=== PATIENT | female | born 1975 | race Caucasian/White ===

== ENCOUNTER 2017-11-24 23:36 | Emergency (ER) | payer OTHER, SELFPAY ==
[2017-11-24 23:36] VITALS: BP 153/82; PULSE 99; RESP 14; TEMP 37.1; O2SAT 99; BMI 30.8
--- NOTE | 2017-11-24 23:47 | RAD_ITS ---
STUDY: X-RAY - LEFT ANKLE REASON FOR EXAM: Female, 42 years old. Injured playing volleyball. Pain throughout the entire ankle. TECHNIQUE: 3 view(s) of the ankle. COMPARISON: None. FINDINGS: Normal visualized distal tibia and fibula. Normal medial and lateral malleoli. Normal tibiotalar articulation and ankle mortise. Normal visualized talus and calcaneus. The visualized subtalar, talonavicular, calcaneocuboid and tarsal articulations are normal. There is nonspecific soft tissue swelling. RAD/Ankle min 3 Views IMPRESSION: No demonstrated fracture, dislocation, or destructive osseous lesion. Electronically Signed: Pablito Humphries MD at 0:30 EDT , Service support ,
--- NOTE | 2017-11-24 23:51 | ED.DCSUM_ITS ---
- ER Visit Summary Date of Service: 11/24/17 Chief Complaint: Ankle injury History of Present Illness: The patient is a 42 F presents to the emergency department with injury to her left ankle. 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 She states that she jumped and twisted the ankle. She states since then , she had a difficult time bearing weight. She has had a lot of swelling on the lateral aspect of the ankle. She denies any further fracture. She denies any daily medications or medical history. She did not strike her head. Physical Examination: Exam is relatively unremarkable. The patient does have swelling of the lateral malleolus. Hayes test is negative. No pain at the proximal fibula. No pain at the head of the fifth metatarsal. Normal pulses. Skin is intact. Test Results: [] Emergency Department Course and Treatment: The patient underwent plain films. There is no evidence of acute fracture. I do she likely has a ligamentous strain. The patient was placed in an Aircast and given crutches. She will be given for analgesics for home. She will be started on anti-inflammatories. She will continue ice and elevation. She will follow-up with orthopedics for reevaluation as needed. Treatment Plan: [] Disposition: Discharge Impression: 1. Left lateral ankle sprain This note was generated with [employer] dictation software. It may contain incorrect words, spelling, and punctuation that were not noted in review of the chart prior to signing ED Disposition - Plan for ED Patient: Chief Complaint: Lower Extremity Injury Instructions: ED Sprain Ankle W X Ray Prescriptions: Naproxen [Naprosyn] 500 mg PO BID PRN #20 tab Referrals: Melanie Oneil DO [STAFF PHYSICIAN] -
[2017-11-24] MEDS: HYDROcodone Bitartrate/Apap 5/325 Tablet PO (23:54)
[2017-11-25] MEDS: HYDROcodone Bitartrate/Apap 5/325 Tablet PO (00:27)
== END 2017-11-25 00:31 | disposition home or self-care (01) ==
LOC: ED 11-25 00:06
PROVIDERS: Emergency Provider Emergency Medicine; Family Provider Internal Medicine; PCP Internal Medicine
DX: S93.492A Sprain of other ligament of left ankle, initial encounter (principal); X50.1XXA Overexertion from prolonged static or awkward postures, initial encounter; Y93.39 Activity, other involving climbing, rappelling and jumping off; Y92.310 Basketball court as the place of occurrence of the external cause; Y99.8 Other external cause status
CPT/HCPCS: 73610; 99284

== ENCOUNTER → 2018-06-16 12:38 | Outpatient (CLI) | payer OTHER, SELFPAY ==
--- NOTE | 2018-06-16 12:42 | BI_ITS ---
MAMMOGRAPHY - BILATERAL SCREENING REASON FOR EXAM: Female, 43 years old. Routine annual screening examination. PERTINENT HISTORY: Aunt with breast cancer. TECHNIQUE: Digital bilateral breast anuel (3D mammographic acquisition) in the CC and MLO projections. 2-D mediolateral oblique (MLO) and craniocaudad (CC) views of both breasts were obtained. CAD: Full Field Digital Mammography with Computer Added Detection was performed. COMPARISON: Comparison is made with prior outside examination dated May 23, 2013. FINDINGS: Breast Composition: The breasts are heterogeneously dense, which may obscure small masses. There are no dominant masses or suspicious calcifications. No other significant abnormalities are identified. There has been no significant change since the prior study. BI/SCREENING MAMM (CAD), BILAT IMPRESSION: Stable bilateral screening mammogram. Yearly follow-up mammogram recommended. (A) ASSESSMENT CATEGORY: BIRADS Category 1: Negative. A letter regarding these results will be sent to the patient by the facility within 30 days. Approximately 10% of breast cancers are not detected by mammography. A normal mammogram should not delay biopsy of a clinically suspicious abnormality. [id number] Electronically Signed: Lewis Camarena MD at 15:01 EST Tel [phone], Service support ,
== END ==
PROVIDERS: Family Provider Internal Medicine; PCP Internal Medicine; Referring Provider Nurse Practitioner Women's Health; Visit Provider Nurse Practitioner Women's Health
DX: Z12.31 Encounter for screening mammogram for malignant neoplasm of breast (principal)
CPT/HCPCS: 77063; 77067

== ENCOUNTER → 2018-07-07 08:04 | Outpatient (CLI) | payer OTHER, SELFPAY ==
--- NOTE | 2018-07-07 08:05 | US_ITS ---
STUDY: ULTRASOUND OF THE FEMALE PELVIS - COMPLETE REASON FOR EXAM: Female, 43 years old. IUD evaluation TECHNIQUE: Transabdominal and Transvaginal TECHNICAL QUALITY: Adequate. COMPARISON: None. FINDINGS: The uterus is anteverted and is in a midline position. The uterus measures 11.6 x 5.6 x 4.4 cm. Normal uterine cervix. The endometrium measures 4 mm in thickness, and is fluid distended. There is no demonstrated endometrial mass. There is no demonstrated myometrial mass. Intrauterine device is positioned within the endometrial cavity, demonstrating a rotated orientation with the body of the IUD lying transversely across the fundic region of the endometrial cavity. The right ovary is visualized. The right ovary measures 3.8 x 3.9 x 2.1 cm. There is no right ovarian cyst or ovarian mass. There is no visualized right adnexal mass or complex lesion. There is normal arterial and normal venous vascularity. The left ovary is surgically absent. There is no fluid in the cul-de-sac. The pre void volume of the bladder was 225 ml. Polycystic ovary disease: No. US/Pelvic (Non ) IMPRESSION: 1. Transverse lie of the patient's intrauterine device within the fundic region of the endometrial cavity. 2. Small amount of endometrial canal fluid, likely correlating with menstrual history. Electronically Signed: Faustino Jarvis MD at 2:52 EST Tel , Service support ,
--- NOTE | 2018-07-07 08:05 | US_ITS ---
STUDY: ULTRASOUND OF THE FEMALE PELVIS - COMPLETE REASON FOR EXAM: Female, 43 years old. IUD evaluation TECHNIQUE: Transabdominal and Transvaginal TECHNICAL QUALITY: Adequate. COMPARISON: None. FINDINGS: The uterus is anteverted and is in a midline position. The uterus measures 11.6 x 5.6 x 4.4 cm. Normal uterine cervix. The endometrium measures 4 mm in thickness, and is fluid distended. There is no demonstrated endometrial mass. There is no demonstrated myometrial mass. Intrauterine device is positioned within the endometrial cavity, demonstrating a rotated orientation with the body of the IUD lying transversely across the fundic region of the endometrial cavity. The right ovary is visualized. The right ovary measures 3.8 x 3.9 x 2.1 cm. There is no right ovarian cyst or ovarian mass. There is no visualized right adnexal mass or complex lesion. There is normal arterial and normal venous vascularity. The left ovary is surgically absent. There is no fluid in the cul-de-sac. The pre void volume of the bladder was 225 ml. Polycystic ovary disease: No. US/Transvaginal Non- IMPRESSION: 1. Transverse lie of the patient's intrauterine device within the fundic region of the endometrial cavity. 2. Small amount of endometrial canal fluid, likely correlating with menstrual history. Electronically Signed: Faustino Jarvis MD at 2:52 EST Tel , Service support ,
--- OUTSIDE RECORDS SUMMARY | 2018-09-01 13:09 | XMS RPT_ITS ---
:1975 Author Organization OHIP Care Team Providers Name Role Phone CANDY MC Attending Unavailable Fast, Rasheeda Primary Care Unavailable Lalito Mccrary Attending Unavailable Luana Laughlin Attending Unavailable Vincenzo, Rasheeda Referring Unavailable Luana Laughlin Attending Unavailable Luana Laughlin Referring Unavailable Fast, Rasheeda Primary Care Unavailable Harini Ramirez Attending Unavailable Harini Ramirez Referring Unavailable Talampas, Candy Primary Care Unavailable Harini Ramirez Attending Unavailable Harini Ramirez Referring Unavailable Fast, Rasheeda Primary Care Unavailable Harini Ramirez Attending Unavailable Rasheeda Loya Referring Unavailable PROBLEMS PROBLEMS DATE TYPE CONDITION / CODE ATTENDING STATUS SOURCE 07/07/2018 Unknown Z30.430 - Encounter James Active [place] for insertion of [facility] contraceptive Repository device / Z30.430(ICD-10) 06/16/2018 Unknown Z12.31 - Encounter Luana Laughlin Active [place] for screening [facility] mammogram [facility] malignant neoplasm Repository of breast / Z12.31(ICD-10) PROCEDURES PROCEDURES No Procedure Records FoundRESULTS RESULTS OPERATIVE REPORT Observed: 07/15/2018 Status: F Source: [place] 8:25 PM [facility] REPOSITORY [facility] Medical Records Department [address] [place] [address] Operative Report 07/15/18 1540 MR#: [id number] Acct: [id number] Name: DYLLAN RYAN Brad Rep #: [id number] : 1975 43 From: Harini Ramirez MD PCP: Rasheeda Loya DO Status: [facility] [place] [facility] [place] List (1) Abnormal uterine bleeding Status: Chronic Comment: plan d and c iud removal and nara ablation (2) Malpositioned IUD Status: Chronic Qualifiers: Comment: plan surgical removal Report of Operation Date of Procedure: 07/15/18 Pre-Operative Diagnosis: aub iud malposition Post-Operative Diagnosis: same Surgery/Procedure Performed:: d and c hysteroscopy iud removal and nara ablation Description of Surgical Findings:: normal uterine lining Type of Anesthesia:: Local MAC Specimen's removed: emc Estimated Blood Loss (mL): minimal Description of Procedure: Patient was prepped and draped in a normal sterile fashion under MAC anesthesia. A weighted speculum was placed in the vagina and the anterior lip of the cervix was grasped with a single-tooth tenaculum. A paracervical block was placed with 1% lidocaine. Using a tonsil clamp the IUD strings were grasped and the IUD was removed without complication. cervix was progressively dilated to allow passage of a 5 mm hysteroscope. The lining was fully visualized and noted to have no abnormalities. Uterine sounded to 11 cm. Curettage was performed and a moderate amount of tissue was removed, sent to pathology. The Nara device was opened and the cavity length was found to be 6 cm. Device was inserted into the uterus and balloon inflated and device deployed. Integrity of the cavity was confirmed and a 2 minute treatment cycle was completed without complication. All instruments were removed from the vagina and excellent hemostasis was noted. Patient was awoken and taken to recovery in stable condition. Grafts/Implants Used: none - Complications none 07/15/182024 <Electronically signed by Harini Ramirez MD> Date Harini Ramirez MD CC: Rasheeda Loya DO; Harini Ramirez MD Signed DISCHARGE INSTRUCTION Observed: 07/15/2018 Status: F Source: [place] 3:40 PM [facility] REPOSITORY [facility] Medical Records Department [address] [place] [address] Instructions for Home/Discharge Instructions 07/15/18 1540 MR#: [id number] Acct: [id number] Name: DYLLAN RYAN Rep #: [id number] : 1975 43 From: Harini Ramirez MD PCP: Rasheeda Loya DO [place] [facility] [place] Diet: No Restrictions Discharge Activity: Return to Normal Activity, May Shower, May Take a Tub Bath Allergies/Adverse Reactions: Allergies morphine Adverse Reaction (Verified 07/12/18 10:51) Nausea/Vom/Diarrhea Medications to take at Discharge NK 07/12/18 Orders to be completed after discharge: Type AND Screen Time Frame: 07/15/18, Location: None Selected Primary Care Physician: Rasheeda Loya DO [Primary Care Provider] - Test Results: Test results from this visit will be discussed in further detail at your follow-up appointment, if applicable. Please Follow Up With: Harini Ramirez MD - [phone] 07/15/18 1540 <Electronically signed by Harini Ramirez MD> Date Harini Ramirez MD CC: Rasheeda Loya DO HISTORY AND PHYSICAL Observed: 07/15/2018 Status: F Source: [place] EXAM 3:34 PM [facility] REPOSITORY [facility] Medical Records Department [address] [place] [address] History and Physical 07/15/18 0613 MR#: [id number] Acct: [id number] Name: DYLLAN RYAN Rep #: [id number] : 1975 43 From: Harini Ramirez MD PCP: Rasheeda Loya DO Status: REG [facility] Y Location: [address] - Problem List (1) Abnormal uterine bleeding Status: Chronic Comment: plan d and c iud removal and nara ablation (2) Malpositioned IUD Status: Chronic Qualifiers: Comment: plan surgical removal History and Physical Date of Admission: 07/15/18 Intake Visit Reasons: EMB Chief Complaint: EMB Salt Washer Required: No Is patient in pain?: No Allergies No Known Allergies Allergy (Verified 07/08/18 11:33) Medications Naproxen [Naprosyn] 500 mg PO BID PRN #20 tab 11/25/17 [Rx Confirmed 07/08/18] levonorgestrel 20 mcg/24 hr (5 years) intrauterine device 1 insert INTRAUTERINE ONCE 05/17/18 [History Confirmed 07/08/18] Is last menstrual period known: No Post menopausal: No Patient : No : No PFSH PFSH Medical History Anemia (Acute) Enlarged uterus (Acute) Viral meningitis (Acute) Surgical History H/O section (Acute) H/O tubal ligation (Acute) S/P removal of left ovary (Acute) Family History Father Hypertension Mother Hypertension Social History adopted: No household members: family housing: house number of children: 3 current occupational status: employed current occupation: [employer] current occupational exposures/hazards: No pets and animals: No history of recent travel: No Smoking Status: Never smoker alcohol intake: never substance use type: does not use what type of 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 she had a normal biopsy 2 years ago. declines UPT Female Reproductive History Cycle Length: 21-35 ROS Const Constitutional: Reports system reviewed and no additional complaints, except as docu; denies chills, fever(s), weight loss or weight gain GI GI: Reports as per HPI; denies vomiting, nausea, constipation, cramping, bloating or abdominal pain : Reports as per HPI; denies vaginal dryness, vaginal discharge, urinary urgency, urinary frequency or urinary incontinence Exam Const General: cooperative, healthy appearing, comfortable, well developed Orientation: alert HENCT Head: normal to inspection Resp Effort AND Inspection: normal respiratory effort Office Procedures Endometrial Biopsy Endometrial Biopsy Details: Cervix prepped with betadine and pipelle inserted into uterus without complication. Specimen obtained and sent to lab for analysis. All instruments removed from vagina without complications. Excellent hemostasis noted. Assessment AND Plan Problems 1. Abnormal uterine bleeding N93.9 plan d and c iud removal and nara ablation 2. Malpositioned intrauterine device (IUD), subsequent encounter T83.32XD plan surgical removal Plan discussed options of ablation versus hysterecotmy. patient prefers iud removal and ablation. discussed risks of not being able to do ablation or not being able to remove IUD. discussed surgical risks including risks of anesthesia, infection, bleeding, injury to bowel, bladder or blood vessels, and patient wishes to proceed with surgery. discussed risk of needing to perform laparoscopy UPDATE- I have seen the patient and performed any clinically relevant updates to the history and physical exam. Harini Ramirez MD 07/15/18 4648 <Electronically signed by Harini Ramirez MD> Date Harini aRmirez MD [facility] Signature: Date (if applicable) CC: Rasheeda Loya DO; Harini Ramirez MD Signed ENDOMETRIAL BX/CURETTINGS Observed: 07/15/2018 Status: F Source: [place] 3:10 PM [facility] REPOSITORY Patient: DYLLAN RYAN : 1975 (43/F) Acct Num: [id number] Phys: James KNOX,Harini Unit Num: [id number] [place] [facility] [place] Specimen: [id number] Received: 07/16/18 - 1031 Spec Type: ENDOM BX/C TISSUES 1 TISSUES: Endometrium, NOS GROSS DESCRIPTION Received in fixative is one container labeled with the patient's name and designated endometrial curettings. The specimen consists of multiple irregular fragments of dark brown soft tissue that in aggregate measure 3 x 2.5 x 0.1 cm. The specimen is totally submitted in one cassette. / RY:irina 07/16/18 TC:3 CPT: 60560 HEADER OPERATION: Hysteroscopy, D AND C, Nara, IUD removal PRE-OP DIAGNOSIS: Abnormal uterine bleeding, malpositioned IUD TISSUE SUBMITTED: Endometrial curettings MICROSCOPIC DESCRIPTION Slides are reviewed. MICROSCOPIC DIAGNOSIS Endometrial curettings: Fragments of weakly proliferative to inactive endometrium. Chronic endometritis. Fragments of benign ecto- and endocervical epithelium. SJ:irina 07/19/18 Signed Anant Blas 07/19/18 <signature on file> Performed By: #### PEMB #### [facility] [place], [address] CBC-COMPLETE BLOOD CNT Collected: 07/15/2018 Status: F Source: [place] NO DIFF 2:00 PM [facility] REPOSITORY Order Comment: Reason for Laboratory Test preop TYPE CODE TESTS RESULT OUT OF RANGE REFERENCE UNITS LAB L100.1000 4.4-11.0 K/mm3 Normal WBC 5.8 LAB L100.1200 4.2-5.4 M/mm3 Normal RBC 4.65 LAB L100.1300 12.0-15.0 g/dl Normal HGB 12.2 LAB L100.1400 37-47 % Normal HCT 38.0 LAB L100.1500 81-99 fL Normal MCV 81.7 LAB L100.1600 27.0-32.0 pg Low MCH 26.2 LAB L100.1700 32-36 g/gl Normal MCHC 32.1 LAB L100.1810 11.6-14.6 % Normal RDW CV 14.6 LAB L100.1820 35.1-43.9 fl Normal RDW SD 42.9 LAB L100.1900 150-450 K/mm3 Normal PLT 235 LAB L100.2000 6.2-12.0 fl Normal MPV 9.8 Performed By: #### L100.0500 #### [facility] [address] [place], [place], [address] TYPE AND SCREEN Collected: 07/15/2018 Status: F Source: [place] 2:00 PM [facility] REPOSITORY Order Comment: Reason for Type AND Screen/Red Cells: SURGERY Surgery Date: 07/15/18 Time: 1409 Other - use comments: UNKNOWN Type of Surgery: OTHER TYPE CODE TESTS RESULT OUT OF RANGE REFERENCE UNITS LAB B10.0800 A Normal BLOOD TYPE GEL POSITIVE LAB B100.4000 Normal Antibody NEGATIVE Screen Performed By: #### B101.7450 #### [facility] [address] [place], [place], [address] ,URINE Collected: 07/15/2018 Status: F Source: [place] 1:50 PM [facility] REPOSITORY Order Comment: Reason for Laboratory Test preop TYPE CODE TESTS RESULT OUT OF REFERENCE UNITS RANGE LAB L400.8000 Negative Normal HCGUQUAL Negative Result Comment: Very dilute urine specimens, as indicated by a low specific gravity, may not contain claims service representative levels of hCG. If is still suspected, a first morning urine specimen should be collected 48 hours later and tested. Performed By: #### L400.7600 #### [facility] [address] [place], [address] [employer]ANK [employer]SE SUPERVISOR OFFICE VISIT Observed: 07/08/2018 Status: F Source: [place] REPORT 10:13 PM [facility] REPOSITORY [facility] [address] [place] [address] OFFICE VISIT Date of Service: 07/08/18 MR#: [id number] Acct: [id number] Name: DYLLAN RYAN Rep #: [id number] : 1975 Provider: Harini Ramirez MD Age/Sex: 43/F [place] [facility] [place]: Signed Intake Vital Signs07/08/18 Height 5 ft 10 in 07/08/18 Weight: 226 lb 07/08/18 Body Mass Index (BMI) 32.4 07/08/18 Blood Pressure 110/68 Intake Visit Reasons: EMB Chief Complaint: EMB Salt Washer Required: No Is patient in pain?: No Allergies No Known Allergies Allergy (Verified 07/08/18 11:33) Medications Naproxen [Naprosyn] 500 mg PO BID PRN #20 tab 11/25/17 [Rx Confirmed 07/08/18] levonorgestrel 20 mcg/24 hr (5 years) intrauterine device 1 insert INTRAUTERINE ONCE 05/17/18 [History Confirmed 07/08/18] Is last menstrual period known: No Post menopausal: No Patient : No : No PFSH PFSH Medical History Anemia (Acute) Enlarged uterus (Acute) Viral meningitis (Acute) Surgical History H/O section (Acute) H/O tubal ligation (Acute) S/P removal of left ovary (Acute) Family History Father Hypertension Mother Hypertension Social History adopted: No household members: family housing: house number of children: 3 current occupational status: employed current occupation: [employer] current occupational exposures/hazards: No pets and animals: No history of recent travel: No Smoking Status: Never smoker alcohol intake: never substance use type: does not use what type of physical activity 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 she had a normal biopsy 2 years ago. declines UPT Female Reproductive History Cycle Length: 21-35 ROS Const Constitutional: Reports system reviewed and no additional complaints, except as docu; denies chills, fever(s), weight loss or weight gain GI GI: Reports as per HPI; denies vomiting, nausea, constipation, cramping, bloating or abdominal pain : Reports as per HPI; denies vaginal dryness, vaginal discharge, urinary urgency, urinary frequency or urinary incontinence Exam Const General: cooperative, healthy appearing, comfortable, well developed Orientation: alert HENCT Head: normal to inspection Resp Effort AND Inspection: normal respiratory effort Office Procedures Endometrial Biopsy Endometrial Biopsy Details: Cervix prepped with betadine and pipelle inserted into uterus without complication. Specimen obtained and sent to lab for analysis. All instruments removed from vagina without complications. Excellent hemostasis noted. Assessment AND Plan Problems 1. Abnormal uterine bleeding N93.9 plan d and c iud removal and nara ablation 2. Malpositioned intrauterine device (IUD), subsequent encounter T83.32XD plan surgical removal Plan discussed options of ablation versus hysterecotmy. patient prefers iud removal and ablation. discussed risks of not being able to do ablation or not being able to remove IUD. discussed surgical risks including risks of anesthesia, infection, bleeding, injury to bowel, bladder or blood vessels, and patient wishes to proceed with surgery. discussed risk of needing to perform laparoscopy Orders Orders: Coding Level of Care Code Off vis,est,level 4 Diagnoses Abnormal uterine bleeding N93.9 Malpositioned intrauterine device (IUD), subsequent encounter T83.32XD Encounter type: subsequent encounter 07/08/18 2213 <Electronically signed by Harini Ramirez MD> Date Harini Ramirez MD Cosigner Signature: Date (if applicable) CC: PELVIC (NON ) Observed: 07/07/2018 Status: F Source: [place] 8:05 AM [facility] REPOSITORY [facility] Imaging Services [address] [place] [address] Pelvic (Non ) MR#: [id number] Acct: [id number] Name: DYLLAN RYAN Rep #: [id number] : 1975 F 43 From: Faustino Jarvis MD PCP: Candy Mc MD Status: REG CLI Study: Pelvic (Non ) Date of Exam: 07/07/18 Exam# [id number] Ordering Dr: Luana Laughlin METAL NUMERICAL CONTROL PROGRAMMERMechelle STUDY: ULTRASOUND OF THE FEMALE PELVIS - COMPLETE REASON FOR EXAM: Female, 43 years old. IUD evaluation TECHNIQUE: Transabdominal and Transvaginal TECHNICAL QUALITY: Adequate. COMPARISON: None. FINDINGS: The uterus is anteverted and is in a midline position. The uterus measures 11.6 x 5.6 x 4.4 cm. Normal uterine cervix. The endometrium measures 4 mm in thickness, and is fluid distended. There is no demonstrated endometrial mass. There is no demonstrated myometrial mass. Intrauterine device is positioned within the endometrial cavity, demonstrating a rotated orientation with the body of the IUD lying transversely across the fundic region of the endometrial cavity. The right ovary is visualized. The right ovary measures 3.8 x 3.9 x 2.1 cm. There is no right ovarian cyst or ovarian mass. There is no visualized right adnexal mass or complex lesion. There is normal arterial and normal venous vascularity. The left ovary is surgically absent. There is no fluid in the cul-de-sac. The pre void volume of the bladder was 225 ml. Polycystic ovary disease: No. US/Pelvic (Non ) IMPRESSION: 1. Transverse lie of the patient's intrauterine device within the fundic region of the endometrial cavity. 2. Small amount of endometrial canal fluid, likely correlating with menstrual history. Electronically Signed: Faustino Jarvis MD at 2:52 EST Tel , Service support , CC: ROBER Laughlin; Candy Mc MD Formula Technician: Signed TRANSVAGINAL Observed: 07/07/2018 Status: F Source: [place] NON- 8:05 AM [facility] REPOSITORY [facility] Imaging Services [address] [place] [address] Transvaginal Non- MR#: [id number] Acct: [id number] Name: DYLLAN RYAN Rep #: [id number] : 1975 F 43 From: Faustino Jarvis MD PCP: Candy Mc MD Status: REG CLI Study: Transvaginal Non- Date of Exam: 07/07/18 Exam# [id number] Ordering Dr: Harini Ramirez MD STUDY: ULTRASOUND OF THE FEMALE PELVIS - COMPLETE REASON FOR EXAM: Female, 43 years old. IUD evaluation TECHNIQUE: Transabdominal and Transvaginal TECHNICAL QUALITY: Adequate. COMPARISON: None. FINDINGS: The uterus is anteverted and is in a midline position. The uterus measures 11.6 x 5.6 x 4.4 cm. Normal uterine cervix. The endometrium measures 4 mm in thickness, and is fluid distended. There is no demonstrated endometrial mass. There is no demonstrated myometrial mass. Intrauterine device is positioned within the endometrial cavity, demonstrating a rotated orientation with the body of the IUD lying transversely across the fundic region of the endometrial cavity. The right ovary is visualized. The right ovary measures 3.8 x 3.9 x 2.1 cm. There is no right ovarian cyst or ovarian mass. There is no visualized right adnexal mass or complex lesion. There is normal arterial and normal venous vascularity. The left ovary is surgically absent. There is no fluid in the cul-de-sac. The pre void volume of the bladder was 225 ml. Polycystic ovary disease: No. US/Transvaginal Non- IMPRESSION: 1. Transverse lie of the patient's intrauterine device within the fundic region of the endometrial cavity. 2. Small amount of endometrial canal fluid, likely correlating with menstrual history. Electronically Signed: Faustino Jarvis MD at 2:52 EST Tel , Service support , CC: Candy Mc MD; Harini Ramirez MD Formula Technician: Signed PROGRESS Observed: 06/29/2018 Status: COMPLETED Source: [place] 7:59 PM [facility] REPOSITORY HNO ID: [id number] Author: aCndy Mc Service: (none) Author Type: Physician Type: Progress Notes Filed: 07/08/2018 2:21 PM Note Text: This note was created using [employer]. Subjective Dyllan Ryan is a 43 year old female. HISTORY Dyllan Ryan is a 43 year old lady here to be formally established with me. IUD was placed because of issues with heavy periods and anemia. Still having periods. Now increased frequency but not as heavy.Every 3 weeks lasting 10 days. Got worse with acne issues. Migraines recurred after being gone after having children. With menses starting. Aura then headaches. Ibuprofen effective. Will be getting uterine ablation and removal of IUD. Dr. Ramirez at [facility]. Varicose vein issues. Gets burning and itching. More RLS in leg with more varicose vein issues. GI issues started after IUD placed. Leaking feeling but no incontinence; wipes mucousy stool with sometimes blood. Notices sensation after moves bowels an hour later. Noted when having her period. No blood with BM. About 3 episodes with blood in past 6 months. PAST MEDICAL HISTORY Diagnosis Date - Anemia 05/20/2013 taking an iron supp. - Meningitis of unspecified cause 2004 VIRAL - Unspecified asthma(493.90) CHILDHOOD - Variants of migraine, not elsewhere classified, without mention of intractable migraine without mention of status migrainosus Current Outpatient Prescriptions: levonorgestrel (MIRENA) 20 mcg/24 hr (5 years) IUD Inserted in office No current facility-administered medications for this visit. ALLERGIES No Known Allergies PAST SURGICAL HISTORY Procedure Laterality Date - DELIVERY ONLY 2003, 2006, 2008 , low cervical x3 - EXCIS RECURRENT GANGLION WRIST Right - INSERTION OF IUD 09/26/2016 - REMOVAL OF OVARY(S) 2008 Left Ovary Removed - TUBAL LIGATION, 2008 FAMILY HISTORY Problem Relation Age of Onset - Hypertension Mother - Lipids Mother - Hypertension Father - Lipids Father - Thyroid Father - Coronary Artery Disease Maternal Grandmother - Heart Maternal Grandfather - Cancer Paternal Grandmother LUNG CANCER - Stroke Paternal Grandfather - Breast Cancer Other PG AUNT - Breast Cancer Other MG AUNT Social History Marital status: Spouse name: Raeann Years of education: 16 Number of children: 3 Occupational History Occupation Employer Comment [employer] Social History Main Topics Smoking status: Never Smoker Smokeless tobacco: Never Used Alcohol use: No Drug use: No Sexual activity: Yes Partners with: Male control/protection: Tubal Ligation, IUD Review of Systems Objective BP 132/82 Pulse 76 Resp 20 Ht 177.8 cm (5' 10) Wt 101.2 kg (223 lb) BMI 32.00 kg/m? Last 5 Encounter BP Readings: Date: BP: 06/29/2018 132/82 09/10/2016 118/72 05/07/2016 106/62 12/22/2015 100/62 11/20/2015 117/68 Last 5 Encounter Wt Readings: Date: Wt: 06/29/2018 101.2 kg (223 lb) 09/26/2016 99.8 kg (220 lb) 09/19/2016 97.1 kg (214 lb) 09/10/2016 97.1 kg (214 lb) 05/07/2016 92.1 kg (203 lb) Physical Exam Constitutional: She is oriented to person, place, and time. She appears well-developed and well-nourished. HENT: Head: Normocephalic and atraumatic. Right Ear: External ear normal. Left Ear: External ear normal. Nose: Nose normal. Mouth/Throat: Oropharynx is clear and moist. Eyes: Pupils are equal, round, and reactive to light. Conjunctivae and EOM are normal. Neck: Normal range of motion. Neck supple. Cardiovascular: Normal rate, regular rhythm, normal heart sounds and intact distal pulses. Pulmonary/Chest: Effort normal and breath sounds normal. Abdominal: Soft. Bowel sounds are normal. Musculoskeletal: Normal range of motion. Neurological: She is alert and oriented to person, place, and time. Skin: Skin is warm and dry. Psychiatric: She has a normal mood and affect. Her behavior is normal. Medium caliber varicose veins Assessment and Plan Encounter Diagnosis ICD-10-CM 1. Routine medical exam Z00.00 2. Fecal smearing R15.1 sometimes mucusy 3. Varicose veins of bilateral lower extremities with pain I83.813 burning or itching discomfort 4. Menstrual migraine without status migrainosus, not intractable G43.829 5. Acne vulgaris L70.0 43 year old lady here to be formally established with me. History and medications reviewed. Epic updated as needed Above issues addressed with patient. Patient involved in shared decision making for management of medical issues. Refills taken care of and meds adjusted as indicated after reviewed history, exam and labs. Health Maintenance reviewed. Updated record and/or ordered tests as recorded. Encouraged on efforts at healthy diet and regular exercise and adequate sleep. Overall healthy exam. Will see inf migraines and acne clear up after IUD removed. Further evaluation and treatment as indicated. Can refer to vein specialist if decides wants to have procedure for varicose vein issues. Can refer to GI or General Surgeon for fecal smearing issues No other red flag symptoms noted. Candy Mc MD CNOV Observed: 06/29/2018 Status: COMPLETED Source: [place] 7:00 PM [facility] REPOSITORY Office Visit (INTMWS) DYLLAN RYAN ([id number]) 1975 F Date Time Provider Department 06/29/18 7:00 PM [facility]ANDY [facility] [place] During your visit today, we recorded the following information about you: Pulse Respiration Blood pressure Weight 76/minute 20/minute 132/82 101.2 kg Height 1.778 m Candy Mc MD 07/08/2018 2:21 PM Signed This note was created using NoteWriter. Subjective Dyllan Ryan is a 43 year old female. HISTORY Dyllan Ryan is a 43 year old lady here to be formally established with me. IUD was placed because of issues with heavy periods and anemia. Still having periods. Now increased frequency but not as heavy.Every 3 weeks lasting 10 days. Got worse with acne issues. Migraines recurred after being gone after having children. With menses starting. Aura then headaches. Ibuprofen effective. Will be getting uterine ablation and removal of IUD. Dr. Ramirez at [facility]. Varicose vein issues. Gets burning and itching. More RLS in leg with more varicose vein issues. GI issues started after IUD placed. Leaking feeling but no incontinence; wipes mucousy stool with sometimes blood. Notices sensation after moves bowels an hour later. Noted when having her period. No blood with BM. About 3 episodes with blood in past 6 months. PAST MEDICAL HISTORY Diagnosis Date - Anemia 05/20/2013 taking an iron supp. - Meningitis of unspecified cause 2004 VIRAL - Unspecified asthma(493.90) CHILDHOOD - Variants of migraine, not elsewhere classified, without mention of intractable migraine without mention of status migrainosus Current Outpatient Prescriptions: levonorgestrel (MIRENA) 20 mcg/24 hr (5 years) IUD Inserted in office No current facility-administered medications for this visit. ALLERGIES No Known Allergies PAST SURGICAL HISTORY Procedure Laterality Date - DELIVERY ONLY 2004, 2006, 2009 , low cervical x3 - EXCIS RECURRENT GANGLION WRIST Right - INSERTION OF IUD 09/26/2016 - REMOVAL OF OVARY(S) 2008 Left Ovary Removed - TUBAL LIGATION, 2008 FAMILY HISTORY Problem Relation Age of Onset - Hypertension Mother - Lipids Mother - Hypertension Father - Lipids Father - Thyroid Father - Coronary Artery Disease Maternal Grandmother - Heart Maternal Grandfather - Cancer Paternal Grandmother LUNG CANCER - Stroke Paternal Grandfather - Breast Cancer Other PG AUNT - Breast Cancer Other MG AUNT Social History Marital status: Spouse name: Raeann Years of education: 16 Number of children: 3 Occupational History Occupation Employer Comment [employer]OMEM[employer] Social History Main Topics Smoking status: Never Smoker Smokeless tobacco: Never Used Alcohol use: No Drug use: No Sexual activity: Yes Partners with: Male control/protection: Tubal Ligation, IUD Review of Systems Objective BP 132/82 Pulse 76 Resp 20 Ht 177.8 cm (5' 10) Wt 101.2 kg (223 lb) BMI 32.00 kg/m? Last 5 Encounter BP Readings: Date: BP: 06/29/2018 132/82 09/10/2016 118/72 05/07/2016 106/62 12/22/2015 100/62 11/20/2015 117/68 Last 5 Encounter Wt Readings: Date: Wt: 06/29/2018 101.2 kg (223 lb) 09/26/2016 99.8 kg (220 lb) 09/19/2016 97.1 kg (214 lb) 09/10/2016 97.1 kg (214 lb) 05/07/2016 92.1 kg (203 lb) Physical Exam Constitutional: She is oriented to person, place, and time. She appears well-developed and well-nourished. HENT: Head: Normocephalic and atraumatic. Right Ear: External ear normal. Left Ear: External ear normal. Nose: Nose normal. Mouth/Throat: Oropharynx is clear and moist. Eyes: Pupils are equal, round, and reactive to light. Conjunctivae and EOM are normal. Neck: Normal range of motion. Neck supple. Cardiovascular: Normal rate, regular rhythm, normal heart sounds and intact distal pulses. Pulmonary/Chest: Effort normal and breath sounds normal. Abdominal: Soft. Bowel sounds are normal. Musculoskeletal: Normal range of motion. Neurological: She is alert and oriented to person, place, and time. Skin: Skin is warm and dry. Psychiatric: She has a normal mood and affect. Her behavior is normal. Medium caliber varicose veins Assessment and Plan Encounter Diagnosis ICD-10-CM 1. Routine medical exam Z00.00 2. Fecal smearing R15.1 sometimes mucusy 3. Varicose veins of bilateral lower extremities with pain I83.813 burning or itching discomfort 4. Menstrual migraine without status migrainosus, not intractable G43.829 5. Acne vulgaris L70.0 43 year old lady here to be formally established with me. History and medications reviewed. Epic updated as needed Above issues addressed with patient. Patient involved in shared decision making for management of medical issues. Refills taken care of and meds adjusted as indicated after reviewed history, exam and labs. Health Maintenance reviewed. Updated record and/or ordered tests as recorded. Encouraged on efforts at healthy diet and regular exercise and adequate sleep. Overall healthy exam. Will see inf migraines and acne clear up after IUD removed. Further evaluation and treatment as indicated. Can refer to vein specialist if decides wants to have procedure for varicose vein issues. Can refer to GI or General Surgeon for fecal smearing issues No other red flag symptoms noted. Candy Mc MD Referring Provider: SELF [200] Allergies As of Date: 06/29/2018 (No Known Allergies) Date Reviewed: 11/03/2016 Reviewed by: Nicki Sarkar Ma - Fully Assessed Reason for Visit: Establish Care [42] Reason For Visit History Recorded Primary Visit Diagnosis:Routine medical exam [Z00.00] Other Visit Diagnoses:Fecal smearing [R15.1] Comment:sometimes mucusy Varicose veins of bilateral lower extremities with pain [I83.813] Comment:burning or itching discomfort Menstrual migraine without status migrainosus, not intractable [G43.829] Acne vulgaris [L70.0] Order(s):ibuprofen (MOTRIN) 200 mg tabletTake 2-3 tablets by mouth twice daily as needed for Pain (Take with food.). For migraineDisp: Rfl: Prescriptions as of 06/29/2018 Sig: LEVONORGESTREL 20 MCG/24 HR (* Inserted in office IBUPROFEN 200 MG TABLET Take 2-3 tablets by mouth twi* Problem List As Of Date 06/29/2018 Noted Resolved SUPERVIS OTHER NORMAL PREG [Z34.80] INVALID FOR* UMBILICAL HERNIA W/O GANGRENE/OBSTRUCTION [K42.*INVALID FOR* PREV DELIVERY NOS-ANTEPART [O34.219] INVALID FOR* Nontoxic multinodular goiter [E04.2] INVALID FOR* Prescriptions ordered this encounter Disp Refills Start End IBUPROFEN 200 MG TABLET 06/29/2018 Class: OTC Route: ORAL Sig: Take 2-3 tablets by mouth twice daily as needed for Pain (Take with food.). For migraine Medications Discontinued During This Encounter miSOPROStol (CYTOTEC) 200 mcg tablet 2 ta* 0 09/19/2016 06/29/2018 Route: ORAL Sig: Take 1 tablet by mouth every 6 hours as needed. Patient not taking: Reported on 06/29/2018 Disc: Reason for discontinue is not on file. ondansetron orally disintegrating (Z* 6 ta* 0 05/07/2016 06/29/2018 Route: ORAL Sig: Take 1 tablet by mouth every 8 hours as needed for Nausea/Vomiting. Patient not taking: Reported on 06/29/2018 Disc: Course of therapy completed sulfamethoxazole-trimethoprim (BACTR* 10 t* 0 12/22/2015 06/29/2018 Route: ORAL Sig: Take 1 tablet by mouth twice daily. Patient not taking: Reported on 06/29/2018 Disc: Course of therapy completed FERROUS SULFATE (IRON ORAL) 06/29/2018 Class: Historical Med Route: ORAL Sig: Take by mouth. Disc: Reason for discontinue is not on file. Ferrous Sulfate (IRON, FERROUS SULFA* 06/29/2018 Class: Historical Med Route: ORAL Sig: Take 325 mg by mouth as needed. Disc: Reason for discontinue is not on file. VITAMIN E ORAL 06/29/2018 Class: Historical Med Route: ORAL Sig: Take 1 tablet by mouth once daily. Disc: Reason for discontinue is not on file. Biotin, Bulk, 100 % powd 06/29/2018 Class: Historical Med Route: Miscell. (Med.Supl.;Non-Drugs) Sig: Disc: Reason for discontinue is not on file. VIT C/RUT/HESPER/BIOFL/BUTC BR (C-RU* 06/29/2018 Class: Historical Med Route: ORAL Sig: Take by mouth. Disc: Reason for discontinue is not on file. Disposition: Return in about 1 year (around 06/29/2019) for Yearly exam and follow up (40 min). Follow-up and Disposition History Recorded Encounter Status:Closed by CANDY MC MD on 07/08/18 SCREENING MAMM (CAD), Observed: 06/16/2018 Status: F Source: KENYA BILAT 12:42 PM [facility] REPOSITORY [facility] Imaging Services [address] [place] [address] SCREENING MAMM (CAD), BILAT MR#: [id number] Acct: [id number] Name: DYLLAN RYAN Rep #: [id number] : 1975 F 43 From: Lewis Camarena MD PCP: Rasheeda Loya DO Status: REG CLI Study: SCREENING MAMM (CAD), BILAT Date of Exam: 06/16/18 Exam# [id number] Ordering Dr: Luana Laughlin METAL NUMERICAL CONTROL PROGRAMMER-C MAMMOGRAPHY - BILATERAL SCREENING REASON FOR EXAM: Female, 43 years old. Routine annual screening examination. PERTINENT HISTORY: Aunt with breast cancer. TECHNIQUE: Digital bilateral breast anuel (3D mammographic acquisition) in the CC and MLO projections. 2-D mediolateral oblique (MLO) and craniocaudad (CC) views of both breasts were obtained. CAD: Full Field Digital Mammography with Computer Added Detection was performed. COMPARISON: Comparison is made with prior outside examination dated May 23, 2013. FINDINGS: Breast Composition: The breasts are heterogeneously dense, which may obscure small masses. There are no dominant masses or suspicious calcifications. No other significant abnormalities are identified. There has been no significant change since the prior study. BI/SCREENING MAMM (CAD), BILAT IMPRESSION: Stable bilateral screening mammogram. Yearly follow-up mammogram recommended. (A) ASSESSMENT CATEGORY: BIRADS Category 1: Negative. A letter regarding these results will be sent to the patient by the facility within 30 days. Approximately 10% of breast cancers are not detected by mammography. A normal mammogram should not delay biopsy of a clinically suspicious abnormality. 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 IUD discussion Salt Washer Required: No Is patient in pain?: No Allergies No Known Allergies Allergy (Verified 05/17/18 11:34) Medications Naproxen [Naprosyn] 500 mg PO BID PRN #20 tab 11/25/17 [Rx] levonorgestrel 20 mcg/24 hr (5 years) intrauterine device 1 insert INTRAUTERINE ONCE 05/17/18 [History Confirmed 05/17/18] Is last menstrual period known: Yes Last Menstral Period: 05/16/18 Post menopausal: No Patient : No : No PFSH Medical History Anemia (Acute) Enlarged uterus (Acute) Viral meningitis (Acute) Surgical History H/O section (Acute) H/O tubal ligation (Acute) S/P removal of left ovary (Acute) Family History Father Hypertension Mother Hypertension Social History adopted: No household members: family housing: house number of children: 3 current occupational status: employed current occupation: [employer] current occupational exposures/hazards: No pets and animals: No history of recent travel: No Smoking Status: Never smoker alcohol intake: never substance use type: does not use what type of physical activity 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 [facility] history of long and heavy menses. Had mirena IUD placed 09/[address] Maldonado. had US after that due to not able to see strings and was in uterus but not in proper position but told ok since not for contraception. 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 History of migraines with vision changes. She also feels she had EMB at that time. Last PAP: 2015 History of abnormal PAP: no Last mammogram: baseline due Female Reproductive History Last Menstral Period: 05/16/18 ROS Const Constitutional: Denies fatigue, weight gain or weight loss Cardio Card: Denies chest pain Resp Resp: Denies cough or shortness of breath with activity GI GI: Denies abdominal pain, constipation, change in stools, vomiting or bloating : Reports as per HPI; denies urinary frequency, pelvic pain, urinary urgency, vaginal discharge, vaginal itching, urinary incontinence or difficulty urinating Exam Const General: cooperative, healthy appearing, no acute distress, well developed Orientation: alert, oriented to person, oriented to place HENCT Head: normal to inspection Neck Neck: normal visual inspection Thyroid: thyroid normal Lymphatic: no lymphadenopathy noted Chest Breast inspection: normal inspection of the breasts, normal inspection of the axillae Breast palpation: normal palpation of the breasts, normal palpation of the axillae, no axillary lymphadenopathy Resp Auscultation: clear to auscultation bilaterally GI Palpation: soft, nontender, no masses Rectal Exam: mass, deferred External Female Exam: normal external appearance, normal appearance of the urethra Urethra: normal appearance of the urethra, normal palpation Speculum Exam - Vagina: normal appearance of the vagina, normal vaginal discharge Speculum Exam - Cervix: normal appearance of the cervix, other (attempt to remove IUD but unsuccessful. ) Bimanual Exam- Vagina AND Uterus: normal bimanual exam, uterine size normal, uterine shape normal, uterus non-tender Bimanual Exam- Adnexa, other: normal adnexae, no adnexal masses, adnexae non-tender, pelvic support normal Pelvic Support: normal Neuro General: alert, oriented x3 Psych Affect: normal affect Assessment AND Plan Problems 1. Encounter for gynecological examination with abnormal finding Z01.411 2. Screening mammogram, encounter for Z12.31 3. Menorrhagia with regular cycle N92.0 4. Intrauterine contraceptive device threads lost, initial encounter T83.32XA Plan Completed breast and pelvic exam Reviewed diet and exercise Pap 2015 Mammogram ordered Will arrange for hysteroscopy D AND C, IUD removal and uterine ablation with Dr. James MILLER 1 year, prn with problems Luana Laughlin PRESSURE TEST OPERATOR Orders Orders: Coding Level of Care Code Off vis,new,prev 40-64yrs Diagnoses Encounter for gynecological examination with abnormal finding Z01.411 Gynecological examination findings: abnormal findings PRESENT Screening mammogram, encounter for Z12.31 Menorrhagia with regular cycle N92.0 Intrauterine contraceptive device threads lost, initial encounter T83.32XA Encounter type: initial encounter 05/17/18 1216 <Electronically signed by Luana WAYNE> Date Luana WAYNE Cosigner Signature: Date (if applicable) CC: EMERGENCY DEPARTMENT Observed: 11/25/2017 Status: F Source: ASTOR SUMMARY 12:22 AM [facility] REPOSITORY [facility] Medical Records Department [address] [place] [address] Emergency Department Summary 11/24/17 2350 MR#: [id number] Acct: [id number] Name: DYLLAN RYAN Brad Rep #: [id number] : 1975 42 From: Lalito Mccrary MD PCP: Rasheeda Loya DO Status: REG ER - ER Visit Summary Date of Service: 11/24/17 Chief Complaint: Ankle injury History of Present Illness: The patient is a 42 F presents to the emergency department with injury to her left ankle. 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 She states that she jumped and twisted the ankle. She states since then, she had a difficult time bearing weight. She has had a lot of swelling on the lateral aspect of the ankle. She denies any further fracture. She denies any daily medications or medical history. She did not strike her head. Physical Examination: Exam is relatively unremarkable. The patient does have swelling of the lateral malleolus. Hayes test is negative. No pain at the proximal fibula. No pain at the head of the fifth metatarsal. Normal pulses. Skin is intact. Test Results: [] Emergency Department Course and Treatment: The patient underwent plain films. There is no evidence of acute fracture. I do she likely has a ligamentous strain. The patient was placed in an Aircast and given crutches. She will be given for analgesics for home. She will be started on anti-inflammatories. She will continue ice and elevation. She will follow-up with orthopedics for reevaluation as needed. Treatment Plan: [] Disposition: Discharge Impression: 1. Left lateral ankle sprain This note was generated with Branded Online dictation software. It may contain incorrect words, spelling, and punctuation that were not noted in review of the chart prior to signing ED Disposition - Plan for ED Patient: Chief Complaint: Lower Extremity Injury Instructions: ED Sprain Ankle W X Ray Prescriptions: Naproxen [Naprosyn] 500 mg PO BID PRN #20 tab Referrals: Melanie Oneil DO [STAFF PHYSICIAN] - What to do if you have Problems For any increased pain, shortness of breath, bleeding, nausea or vomiting, chest pain, or any unexpected problems, contact your Primary Care Provider. Call [facility] ([phone]) or report to the closest Emergency Room. Call 911 if necessary. 11/25/17 0022 <Electronically signed by Lalito Mccrary MD> Date Lalito Mccrary MD Cosigner Signature (If Indicated): Date CC: Rasheeda Loya DO ANKLE MIN 3 VIEWS Observed: 11/24/2017 Status: F Source: KENYA 11:48 PM [facility] REPOSITORY [facility] Imaging Services [address] [place] [address] Ankle min 3 Views MR#: [id number] Acct: [id number] Name: DYLLAN RYAN Rep #: [id number] : 1975 F 42 From: Pablito Humphries MD PCP: Rasheeda Loya DO Status: DEP ER Study: Ankle min 3 Views Date of Exam: 11/24/17 Exam# [id number] Ordering Dr: Lalito Mccrary MD STUDY: X-RAY - LEFT ANKLE REASON FOR EXAM: Female, 42 years old. Injured playing volleyball. Pain throughout the entire ankle. TECHNIQUE: 3 view(s) of the ankle. COMPARISON: None. FINDINGS: Normal visualized distal tibia and fibula. Normal medial and lateral malleoli. Normal tibiotalar articulation and ankle mortise. Normal visualized talus and calcaneus. The visualized subtalar, talonavicular, calcaneocuboid and tarsal articulations are normal. There is nonspecific soft tissue swelling. RAD/Ankle min 3 Views IMPRESSION: No demonstrated fracture, dislocation, or destructive osseous lesion. Electronically Signed: Pablito Humphries MD at 0:30 EDT , Service support , CC: Rasheeda Loya DO; Lalito Mccrary MD Formula Technician: Signed ALLERGIES ALLERGIES DATE TYPE / CODE NAME / CODE REACTION SEVERITY SOURCE 07/12/2018 Drug morphine/[id number] Nausea/Vom/Diar Unknown [facility] Allergy/416 545(RXNORM) [facility] 949501(SNOM Repository ED CT) 07/08/2018 Drug No Known Unknown [facility] Allergy/416 Allergies/X11389 Hospital 600620(SNOM 0388(RXNORM) Repository ED CT) Drug NO KNOWN [facility] Class/60022 ALLERGIES Main [place] 1003(SNOMED Repository CT) ENCOUNTERS ENCOUNTERS ADMIT/DISCHARGE ACCOUNT ADMITTING ENCOUNTER LOCATION SOURCE NUMBER CLASS 07/15/2018/07/15/20 [id number] Ambulatory [address] ing:SDCRoom: Repository AC17 07/08/2018/07/08/20 [id number] Ambulatory BMSBuilding:B [place] [address] [facility] Repository 07/07/2018 [id number] [facility] ing:OPUS Repository 06/29/2018/07/09/20 [id number] Ambulatory [address] Repository 06/16/2018 [id number] Ambulatory [facility] ing:OPBI Repository 05/17/2018/05/17/20 [id number] Ambulatory BMSBuilding:B [place] [address] Repository 11/24/2017/11/26/19 [id number] Emergency [address] ing:ED Repository PAYERS PAYERS ENCOUNTER GUARANTOR PAYER SUBSCRIBER SOURCE 07/15/2018 RAEANN Sigala Primary MIJARES J [place] [id number] Insurance:MEDICAL GILBERTDOB: [facility] [id number] [address]Dhf: Number: Repository [id number] (HP) Date:[id number] [address]DS: 07/15/2018 Secondary NOT GIVENUNK [place] Insurance:SELF PAY [facility] Number: Effective Repository Date:2018-06-04 07/08/2018 RAEANN Sigala Primary MIJARES J [place] [id number] Insurance:MEDICAL GILBERTDOB: [facility] [id number] [facility] [address]Njj: Number: Repository [id number] (HP) Date:[id number] [address] [address]VH: 07/08/2018 Secondary NOT GIVENUNK [place] Insurance:SELF PAY [facility] Number: Effective Repository Date:2018-07-08 07/07/2018 RAEANN P [facility] [place] [id number] Insurance:MEDICAL GILBERTDOB: [facility] [id number] [address]Rqm: Number: Repository [id number] (HP) Date:[id number] [place] [id number]: 07/07/2018 Secondary NOT GIVENUNK [place] Insurance:SELF PAY [facility] Number: Effective Repository Date:2018-06-04 06/16/2018 RAEANN [facility] [place] [id number] Insurance:MEDICAL GILBERTDOB: [facility] [id number] [facility] [address]Mfk: Number: Repository [id number] (HP) Date:[id number] [address] [address]IZ: 06/16/2018 Secondary NOT GIVENUNK [place] Insurance:SELF PAY [facility] Number: Effective Repository Date:2018-05-17 05/17/2018 Raeann [facility] [place] [id number] Insurance:MEDICAL GILBERTDOB: [facility] [id number] [facility] [address]Mcl: Number: Repository [id number] (HP) Date:[id number] [address] [address]PR: 05/17/2018 Secondary NOT GIVENUNK [place] Insurance:SELF PAY [facility] Number: Effective Repository Date:2018-05-17 11/24/2017 Raeann Sigala Primary DYLLAN [place] [id number] Insurance:MEDICAL GILKIADOB[facility] [id number] [address]Yeu: Number: Repository [id number] (HP) Date:[id number] [place] [address]YQ: 11/24/2017 Secondary NOT GIVENRYAN [place] Insurance:SELF PAY [facility] Number: Effective Repository Date:2017-11-24
== END ==
PROVIDERS: Family Provider Internal Medicine; PCP Internal Medicine; Referring Provider Obstetrics & Gynecology; Visit Provider Obstetrics & Gynecology
DX: Z30.430 Encounter for insertion of intrauterine contraceptive device (principal)
CPT/HCPCS: 76830; 76856

== ENCOUNTER 2018-07-15 13:35 | Day surgery (SDC) | payer OTHER, SELFPAY ==
[2018-07-08 11:33] VITALS: BMI 32.4
[2018-07-15] VITALS (8 sets, daily range): BP systolic 105–129; BP diastolic 59–82; PULSE 69–91; RESP 16–18; TEMP 36.6–37.4; O2SAT 95–100; BMI 32.3
--- NOTE | 2018-07-15 06:14 | HP.PCM_ITS ---
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 Is patient in pain?: No Allergies No Known Allergies Allergy (Verified 07/08/18 11:33) Medications Naproxen [Naprosyn] 500 mg PO BID PRN #20 tab 11/25/17 [Rx Confirmed 07/08/18] levonorgestrel 20 mcg/24 hr (5 years) intrauterine device 1 insert INTRAUTERINE ONCE 05/17/18 [History Confirmed 07/08/18] Is last menstrual period known: No Post menopausal: No Patient : No : No PFSH PFSH Medical History Anemia (Acute) Enlarged uterus (Acute) Viral meningitis (Acute) Surgical History H/O section (Acute) H/O tubal ligation (Acute) S/P removal of left ovary (Acute) Family History Father Hypertension Mother Hypertension Social History adopted: No household members: family housing: house number of children: 3 current occupational status: employed current occupation: [employer] current occupational exposures/hazards: No pets and animals: No history of recent travel: No Smoking Status: Never smoker alcohol intake: never substance use type: does not use what type of physical activity do you participate 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 she had a normal biopsy 2 years ago. declines UPT Female Reproductive History Cycle Length: 21-35 ROS Const Constitutional: Reports system reviewed and no additional complaints, except as docu; denies chills, fever(s), weight loss or weight gain GI GI: Reports as per HPI; denies vomiting, nausea, constipation, cramping, bloating or abdominal pain : Reports as per HPI; denies vaginal dryness, vaginal discharge, urinary urgency, urinary frequency or urinary incontinence Exam Const General: cooperative, healthy appearing, comfortable, well developed Orientation: alert [facility] Head: normal to inspection Resp Effort & Inspection: normal respiratory effort Office Procedures Endometrial Biopsy Endometrial Biopsy Details: Cervix prepped with betadine and pipelle inserted into uterus without complication. Specimen obtained and sent to lab for analysis. All instruments removed from vagina without complications. Excellent hemostasis noted. Assessment & Plan Problems 1. Abnormal uterine bleeding N93.9 plan d and c iud removal and nara ablation 2. Malpositioned intrauterine device (IUD), subsequent encounter T83.32XD plan surgical removal Plan discussed options of ablation versus hysterecotmy. patient prefers iud removal and ablation. discussed risks of not being able to do ablation or not being able to remove IUD. discussed surgical risks including risks of anesthesia, infection, bleeding, injury to bowel, bladder or blood vessels, and patient wishes to proceed with surgery. discussed risk of needing to perform laparoscopy UPDATE- I have seen the patient and performed any clinically relevant updates to the history and physical exam. Harini Ramirez MD
[2018-07-15 14:04] LABS: Internal QC Validated? YES +Cl - CLEAR BKGD; Pregnancy, Urine Negative Negative
[2018-07-15 14:13] LABS: Hemoglobin 12.2 g/dl (12.0-15.0); Mean Corp Hgb Conc 32.1 g/gl (32-36); Mean Corpuscular Hgb 26.2 pg (27.0-32.0); Mean Corpuscular Volume 81.7 fL (81-99); Mean Platelet Vol. 9.8 fl (6.2-12.0); Platelet Count 235 K/mm3 (150-450); RBC Distribution Width CV 14.6 % (11.6-14.6); RBC Distribution Width SD 42.9 fl (35.1-43.9); Red Blood Count 4.65 M/mm3 (4.2-5.4); White Blood Count 5.8 K/mm3 (4.4-11.0)
[2018-07-15 14:14] LABS: Scan Indicated on CBC? Y/N NO
--- NOTE | 2018-07-15 15:10 | EMB_PTH ---
PATIENT: DYLLAN RYAN LOC: [facility] [place] U#:[id number] AGE/SX: 43/F ROOM: RE07/15/[address]: Dr. Harini Ramirez MD : 1975 BED: DIS: 07/15/2018 SPEC #: [id number] RECD: 07/16/18 10:31 STATUS: SHANITA ROZINA #: [id number] MEGHA: 07/15/18 15:[address]: Harini Ramirez DEPT: SURGICAL PATHOLOGY RECD BY: Ahsan Meza ENTERED: 07/16/18 11:02 SP TYPE: ENDOM BX/C JORGE DR: Dr. Rasheeda Loya DO Tissues: Endometrium, NOS Procedures: Surgery Specimen Level IV HEADER OPERATION: Hysteroscopy, D & C, Rachael, IUD removal PRE-OP DIAGNOSIS: Abnormal uterine bleeding, malpositioned IUD TISSUE SUBMITTED: Endometrial curettings MICROSCOPIC DIAGNOSIS Endometrial curettings: Fragments of weakly proliferative to inactive endometrium. Chronic endometritis. Fragments of benign ecto- and endocervical epithelium. SHIRLEY:irina 07/19/18 MICROSCOPIC DESCRIPTION Slides are reviewed. GROSS DESCRIPTION Received in fixative is one container labeled with the patient's name and designated endometrial curettings. The specimen consists of multiple irregular fragments of dark brown soft tissue that in aggregate measure 3 x 2.5 x 0.1 cm. The specimen is totally submitted in one cassette. / RY:irina 07/16/18 TC:3 CPT: 39946
--- NOTE | 2018-07-15 15:40 | DCINST_ITS ---
Discharge Diet: No Restrictions Discharge Activity: Return to Normal Activity, May Shower, May Take a Tub Bath Allergies/Adverse Reactions: Allergies morphine Adverse Reaction (Verified 07/12/18 10:51) Nausea/Vom/Diarrhea Medications to take at Discharge NK 07/12/18 Orders to be completed after discharge: Type & Screen Time Frame: 07/15/18, Location: None Selected Primary Care Physician: Rasheeda Loya DO [Primary Care Provider] - Test Results: Test results from this visit will be discussed in further detail at your follow- up appointment, if applicable. Please Follow Up With: Harini Ramirez MD - [phone]
--- NOTE | 2018-07-15 15:40 | PCM.OPRPT ---
Problem List (1) Abnormal uterine bleeding Status: Chronic Comment: plan d and c iud removal and rachael ablation (2) Malpositioned IUD Status: Chronic Qualifiers: Comment: plan surgical removal Report of Operation Date of Procedure: 07/15/18 Pre-Operative Diagnosis: aub iud malposition Post-Operative Diagnosis: same Surgery/Procedure Performed:: d and c hysteroscopy iud removal and rachael ablation Description of Surgical Findings:: normal uterine lining Type of Anesthesia:: Local MAC Specimen's removed: emc Estimated Blood Loss (mL): minimal Description of Procedure: Patient was prepped and draped in a normal sterile fashion under MAC anesthesia. A weighted speculum was placed in the vagina and the anterior lip of the cervix was grasped with a single-tooth tenaculum. A paracervical block was placed with 1% lidocaine. Using a tonsil clamp the IUD strings were grasped and the IUD was removed without complication. cervix was progressively dilated to allow passage of a 5 mm hysteroscope. The lining was fully visualized and noted to have no abnormalities. Uterine sounded to 11 cm. Curettage was performed and a moderate amount of tissue was removed, sent to pathology. The Rachael device was opened and the cavity length was found to be 6 cm. Device was inserted into the uterus and balloon inflated and device deployed. Integrity of the cavity was confirmed and a 2 minute treatment cycle was completed without complication. All instruments were removed from the vagina and excellent hemostasis was noted. Patient was awoken and taken to recovery in stable condition. Grafts/Implants Used: none - Complications none
== END 2018-07-15 18:10 | disposition home or self-care (01) ==
LOC: SDC 13:36 → AC 13:37
PROVIDERS: Anesthesiology; Family Provider Internal Medicine; PCP Internal Medicine; Referring Provider Obstetrics & Gynecology; Visit Provider Obstetrics & Gynecology
PROC: 0U5B8ZZ Destruction of Endometrium, Via Natural or Artificial Opening Endoscopic (ICD-10-PCS; CPT 58558; principal; 2018-07-15 14:55)
DX: N71.1 Chronic inflammatory disease of uterus (principal); T83.32XD Displacement of intrauterine contraceptive device, subsequent encounter
CPT/HCPCS: 58301; 58558; 81025; 85027; 86850; 86900; 88305; J7120; J2405